=== PATIENT | male | born 1960 ===

== ENCOUNTER 2018-07-08 16:48 | Emergency (ER) | payer OTHER ==
[2018-07-08 17:09] VITALS: RESP 16
--- NOTE | 2018-07-08 18:19 | C.PDOC ---
History Of Present Illness 57 year old male presents to the ED complaining of pain and swelling to right elbow ongoing for a few days. Reports he believes he has an infection. States that he dislocated his right elbow from a fall 20 years ago. Notes he developed an infection after elbow was relocated and then later got surgery in left elbow. Denies any fever, chills, weakness, numbness or any other symptoms. Time Seen by Provider: 07/08/18 17:34 Chief Complaint (Nursing): Upper Extremity Problem/Injury History Per: Patient History/Exam Limitations: no limitations Onset/Duration Of Symptoms: Days Current Symptoms Are (Timing): Still Present Quality: "Pain" Past Medical History Reviewed: Historical Data, Nursing Documentation, Vital Signs Vital Signs: Last Vital Signs Temp 98.6 F 07/08/18 17:04 Pulse 80 07/08/18 17:04 Resp 16 07/08/18 17:04 BP 137/84 07/08/18 17:04 Pulse Ox 99 07/08/18 17:04 Primary Care Provider: FAMILY PROVIDER,NO - Medical History PMH: No Chronic Diseases Other Surgeries: Hx of surgeries Family History: States: No Known Family Hx - Social History Hx Alcohol Use: Yes Hx Substance Use: No - Immunization History Hx Tetanus Toxoid Vaccination: No Hx Influenza Vaccination: No Hx Pneumococcal Vaccination: No Physical Exam - Physical Exam Appears: Non-toxic, No Acute Distress Skin: Warm, Dry, Rash Head: Normacephalic Eye(s): bilateral: Normal Inspection Oral Mucosa: Moist Neck: Supple Extremity: Normal ROM, No Tenderness, No Calf Tenderness, Capillary Refill <2 Sec, Other (mild swelling of area distally to right elbow, skin is soft, no erythema ) Pulses: Left Radial: Normal, Right Radial: Normal Neurological/Psych: Oriented x3, Normal Speech, Normal Motor, Normal Sensation Gait: Steady ED Course And Treatment O2 Sat by Pulse Oximetry: 99 (RA) Pulse Ox Interpretation: Normal - Other Rad right elbow XR X-Ray: Viewed By Me, Read By Radiologist Interpretation: Accession No. : [id number]. Patient Name / ID : GEORGETTE AMOS / [id number]. Exam Date : 07/08/2018 17:39:07 ( Approved ). Study Comment : Sex / Age : M / [id number]. Creator : carlitos boone. Dictator : Garrick Landis MD. Inventory Control Assistant : Windows Admin : Garrick Landis MD. Approver2 : Report Date : 07/08/2018 17:43:26. My Comment : . Date of service: 07/08/2018. PROCEDURE: Radiographs of the right elbow. HISTORY: RIGHT ELBOW PAIN AND SWELLING. COMPARISON: No prior. TECHNIQUE: 3 views obtained. FINDINGS: BONES: No acute fracture. Evidence of prior trauma particularly about the olecranon. Dense, dystrophic calcifications radioulnar syndesmosis also likely reflective of prior trauma. JOINTS: Normal. No osteoarthritis. SOFT TISSUES: Soft tissue swelling adjacent to the olecranon. JOINT EFFUSION: None. OTHER FINDINGS: None. IMPRESSION: Soft tissue swelling without acute articular or osseous abnormality. Medical Decision Making Medical Decision Making: Plan - Right elbow XR - Cleocin 300mg PO - Motrin 600mg PO Xrays show no fracture. Patient told he has a strange body growth in right elbow. Pt given Rx for antibiotics. Advised to return to the ED if he develops fever, limited ROM, or increased swelling. Instructed to follow up with ecmo specialist. Disposition - Disposition Referrals: [facility] [Outside] Bill Begum III, MD [Staff Provider] - Disposition: HOME/ ROUTINE Disposition Time: 18:00 Condition: GOOD Additional Instructions: Follow up with the Orthopedist within 1-2 days. Return if worsened. Prescriptions: Clindamycin [Cleocin] 300 mg PO TID #30 cap Ibuprofen [Motrin] 600 mg PO TID #21 tab Instructions: Cellulitis and Erysipelas (Skin Infections), Bursitis Forms: [facility] (Luxembourgish), Work Excuse Print Language: [place] - POA Present On Arrival: None - Clinical Impression Clinical Impression: Elbow swelling - PA / [employer] SUPERVISOR / Resident Statement MD/DO has reviewed & agrees with the documentation as recorded. - Scribe Statement The provider has reviewed the documentation as recorded by the Scribe Geri Paneque All medical record entries made by the Junior were at my direction and personally dictated by me. I have reviewed the chart and agree that the record accurately reflects my personal performance of the history, physical exam, medical decision making, and the department course for this patient. I have also personally directed, reviewed, and agree with the discharge instructions and disposition.
--- NOTE | 2018-07-08 18:32 | RAD ---
Date of service: 07/08/2018 PROCEDURE: Radiographs of the right elbow. HISTORY: RIGHT ELBOW PAIN AND SWELLING COMPARISON: No prior. TECHNIQUE: 3 views obtained. FINDINGS: BONES: No acute fracture. Evidence of prior trauma particularly about the olecranon. Dense, dystrophic calcifications radioulnar syndesmosis also likely reflective of prior trauma. JOINTS: Normal. No osteoarthritis. SOFT TISSUES: Soft tissue swelling adjacent to the olecranon. JOINT EFFUSION: None. OTHER FINDINGS: None. IMPRESSION: Soft tissue swelling without acute articular or osseous abnormality.
[2018-07-08 18:40] VITALS: BP 117/80; PULSE 76; TEMP 98
[2018-07-08 18:56] VITALS: O2SAT 99
== END 2018-07-08 18:40 | disposition home or self-care (01) ==
LOC: C.ER 16:48
DX: M79.89 Other specified soft tissue disorders (principal)